=== PATIENT | female | born 1935 | race Caucasian/White ===

== ENCOUNTER → 2017-03-11 | Outpatient (CLI) | payer OTHER ==
[~2017-03-11] MED LIST: COUMADIN5 MG PO; DOLACET 5/5001 EACH PO; LANOXIN250 MC1; LOVENOX60 MG/0.6 SC; OMEPRAZOLE; Z.0.ENALAPRIL MALEA2 PO; Z.0.GABAPENTIN300 MG PO; Z.0.NAPROXEN500 MG PO; ZIAC1 UDTAB GT
--- NOTE | 2017-03-11 11:56 | Diagnostic Imaging Report ---
PROCEDURE:KNEE BILATERAL STANDING AP VIEW COMPARISON:None. INDICATIONS:ARTHRITIS FINDINGS: There are no fractures, dislocations, lytic or blastic lesions. 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 Vascular calcifications. 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 Shirlene Obando M.D. Dictated by: Shirlene Obando M.D. on 03/11/2017 at 12:04 Electronically approved by: Shirlene Obando M.D. on 03/11/2017 at 12:04
== END ==
LOC: RAD 10:15
PROVIDERS: ATTEND Anesthesiology
DX: M17.0 Bilateral primary osteoarthritis of knee (principal)
CPT/HCPCS: 73565

== ENCOUNTER → 2018-01-31 | Outpatient (CLI) | payer OTHER ==
--- NOTE | 2018-01-31 18:23 | Diagnostic Imaging Report ---
FOOT RIGHT COMPLETE - 3 views HISTORY: Pain COMPARISON: None available. FINDINGS: Limited by generalized demineralization. Evidence of first metacarpal head resection with arthroplasty. No evidence of acute displaced fracture or dislocation. Interphalangeal joint space narrowing. Old fracture deformity of fifth metatarsal bone. Soft tissues are unremarkable. IMPRESSION: Limited by generalized demineralization. No definite evidence of acute displaced fracture or dislocation of the right foot. Chronic changes as detailed above. Signed by: Dr. Saran Meeks MD on 01/31/2018 6:20 PM
== END ==
LOC: RAD 16:28
PROVIDERS: ATTEND Family Medicine
DX: M79.671 Pain in right foot (principal)

== ENCOUNTER → 2018-10-10 | Outpatient (CLI) | payer OTHER ==
--- NOTE | 2018-10-10 12:30 | Diagnostic Imaging Report ---
EXAMINATION: SHOULDER LEFT COMPLETE INDICATION: Shoulder pain COMPARISON: None FINDINGS: Acute mildly displaced fracture of the distal third of the left clavicle. 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 No displaced rib fracture. The visualized portions of the left lung are clear. Sternotomy wires in place. IMPRESSION: Acute mildly displaced fracture of distal third of left clavicle. 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 Signed by: Jonathan Batres MD on 10/10/2018 12:26 PM
== END ==
LOC: RAD 11:45
PROVIDERS: ATTEND Family Medicine
DX: M25.512 Pain in left shoulder (principal)

== ENCOUNTER 2018-10-15 08:05 | Emergency (ER) | payer MEDICARE, OTHER ==
[~2018-10-15] VITALS: Ht 157.5 cm; Wt 61.2 kg
--- OUTSIDE RECORDS SUMMARY | 2018-10-15 08:09 | XMS REPORT ---
Author Author [facility] Address Unknown Phone Unavailable Care Team Providers Care Surgical Aide Name Role Phone Olivia GREENE Unavailable Unavailable Juan Pablo CHAPMAN Unavailable Unavailable Problems This patient has no known problems. Allergies, Adverse Reactions, Alerts This patient has no known allergies or adverse reactions. Medications This patient has no known medications. Results Test Description Test Time Test Comments Text Results Atomic Results Result Comments SHOULDER LEFT COMPLETE 2018-10-10 12:21:[address] [address] Patient Name: KATHY PINEDA I MR #: [id number] : 1935 Age/Sex: 83/F Req #: [id number] Adm Physician: Ordered by: STEVEN GREENE MD Report #: [id number] Location: [facility] Room/Bed: Procedure: [id number] DX/SHOULDER LEFT COMPLETE Exam Date: 10/10/18 Exam Time: 1209 REPORT STATUS: Signed EXAMINATION: SHOULDER LEFT COMPLETE INDICA TION: Shoulder pain COMPARISON: None FINDINGS: Acute mildly displaced fracture of the distal third of the left clavicle. 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 No displaced rib fracture. The visualized portions of the left lung are clear. Sternotomy wires in place. IMPRESSION: Acute mildly displaced fracture of distal third of left clavicle. 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 Signed by: Jonathan Draper MD on 10/10/2018 12:26 PM Dictated By: JONATHAN DRAPER MD 25 Transcribed By: SULTANA on 10/10/181225 COPY TO: STEVEN GREENE MD FOOT RIGHT COMPLETE 2018-01-31 18:16:00 [place] [address] Patient Name: KATHY PINEDA I MR #: [id number] : 1935 Age/Sex: 82/F Req #: [id number] Adm Physician: Ordered by: STEVEN GREENE MD Report #: [id number] Location: [facility] Room/Bed: Procedure: [id number] DX/FOOT RIGHT COMPLETE Exam Date: 01/31/18 Exam Time: 1747 REPORT STATUS: Signed FOOT RIGHT COMPLETE - 3 views HISTORY: Pain COM PARISON: None available. FINDINGS: Limited by generalized demineralization. Evidence of first metacarpal head resection with arthroplasty. No evidence of acute displaced fracture or dislocation. Interphalangeal joint space narrowing. Old fracture deformity of fifth metatarsal bone. Soft tissues are unremarkable. IMPRESSION: Limited by generalized demineralization. No definite evidence of acute displaced fracture or dislocation of the right foot. Chronic changes as detailed above. Signed by: Dr. Saran Helm MD on 01/31/2018 6:20 PM Dictated By: SARAN HELM MD 19 Transcribed By: SULTANA on 01/31/181819 COPY TO: STEVEN GREENE MD KNEES STANDING AP VIEW [place] [address] Patient Name: KATHY PINEDA I MR #: [id number] : 1935 Age/Sex: 81/F Req #: [id number] [facility] Physician: Ordered by: MARIANNA CHAPMAN MD Report #: [id number] Location: [facility] Room/Bed: Procedure: [id number] DX/KNEES STANDING AP VIEW Exam Date: 03/11/17 Exam Time: 1030 REPORT STATUS: Signed PROCEDURE: KNEE BILATERAL STANDING AP VIEW COMPARISON: None. INDICATIONS: ARTHRITIS FINDINGS: There are no fractures, dislocations, lytic or blastic lesions. 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 Vascular calcifications. 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 Shirlene Meneses M.D. Dictated by: Shirlene Meneses M.D. on 03/11/2017 at 12:04 Electronically approved by: Shirlene Meneses M.D. on 03/11/2017 at 12:04 Dictated By: VALENTIN MENESES MD, MD 03 Transcribed By: LISA on 03/11/17 120 COPY TO: MARIANNA CHAPMAN MD
[2018-10-15 08:49] LABS: INR 2.17; PROTHROMBIN TIME 24.9 seconds (11.9-14.5)
--- NOTE | 2018-10-15 09:19 | Diagnostic Imaging Report ---
HIP LEFT 2-3 VW (+/- PELVIS) - 3 views HISTORY: Pain COMPARISON: None available. FINDINGS: Bones: No acute displaced fracture. Osseous alignment is within normal limits. Partially seen lumbar spine fusion hardware. Joints: Degenerative changes of the left hip, bilateral SI joints, and lower lumbar spine. Soft tissues: The soft tissues appear unremarkable. IMPRESSION: No evidence of acute displaced fracture or dislocation of the left hip. Signed by: Dr. Saran Meeks MD on 10/15/2018 9:16 AM
--- NOTE | 2018-10-15 09:20 | Diagnostic Imaging Report ---
SHOULDER LEFT COMPLETE - 2 views HISTORY: Pain COMPARISON: None available. FINDINGS: Bones: Fracture of the distal left clavicle with mild inferior displacement. Osseous alignment is within normal limits. Old fracture deformity of the proximal left humerus. Joints: The joint spaces are well-maintained. Soft tissues: The soft tissues appear unremarkable. IMPRESSION: Fracture of the distal left clavicle with mild inferior displacement. No acute fracture or dislocation of the left glenohumeral joint. Signed by: Dr. Saran Meeks MD on 10/15/2018 9:17 AM
== END 2018-10-15 10:36 | disposition home or self-care (01) ==
LOC: ER 08:05
DX: G89.11 Acute pain due to trauma (principal); S42.032A Displaced fracture of lateral end of left clavicle, initial encounter for closed fracture; M25.552 Pain in left hip; W18.30XA Fall on same level, unspecified, initial encounter; Y92.008 Other place in unspecified non-institutional (private) residence as the place of occurrence of the external cause
CPT/HCPCS: 36415; 85610; 99284

== ENCOUNTER 2022-04-14 17:28 | Observation (INO) | payer MEDICARE ==
[~2022-04-14] VITALS: Ht 157.5 cm; Wt 61.2 kg
[2022-04-14 18:13] LABS: BASOPHILS # (AUTO) 0.1 (0.0-0.1); BASOPHILS % 0.9 % (0.0-1.0); EOSINOPHILS # (AUTO) 0.1 (0.0-0.4); EOSINOPHILS % 2.3 % (0.0-6.0); HEMATOCRIT 44.7 % (34.2-44.1); HEMOGLOBIN 13.3 g/dL (12.0-16.0); LYMPHOCYTES # (AUTO) 1.5 (1.0-3.2); LYMPHOCYTES % 26.1 % (18.0-39.1); MEAN CORPUSCULAR HEMOGLOBIN 29.6 pg (28-32); MEAN CORPUSCULAR HGB CONC 29.8 g/dL (31-35); MEAN CORPUSCULAR VOLUME 99.6 fL (81-99); MONOCYTES # (AUTO) 0.5 (0.2-0.8); MONOCYTES % 8.9 % (4.4-11.3); NEUTROPHILS # (AUTO) 3.4 (2.1-6.9); NEUTROPHILS % 61.4 % (38.7-80.0); PLATELET COUNT 278 x10e3/uL (140-360); RED BLOOD COUNT 4.49 x10e6/uL (3.6-5.1)
[2022-04-14] MEDS ORDERED: ONDANSETRON HCL INJ 2MG/ML 2ML 2 MG/ML VIAL IV PRN ×2 (18:15→20:00)
[2022-04-14 18:28] LABS: ANION GAP 13.2 mmol/L (8-16); CALCIUM 9.3 mg/dL (8.4-10.2); CREATININE, SERUM 0.79 mg/dL (0.57-1.11); POTASSIUM 4.2 mmol/L (3.5-5.1)
[2022-04-14 19:37] LABS: CLARITY,URINE HAZY (CLEAR); COLOR,URINE YELLOW (YELLOW); KETONES,URINE NEGATIVE (NEGATIVE); LEUKOCYTE ESTERASE ,URINE NEGATIVE (NEGATIVE); NITRITE,URINE POSITIVE (NEGATIVE); PROTEIN,URINE DIPSTICK NEGATIVE (NEGATIVE); URINE UROBILINOGEN 0.2 mg/dL (0.2 - 1)
[2022-04-14 19:50] LABS: BACTERIA,URINE MANY /HPF; EPITHELIAL CELLS,URINE RARE /LPF
[2022-04-14] MEDS ORDERED: SODIUM CHLORIDE 0.9% 1000ML 1,000 ML IV ONE (20:00)
[2022-04-15] VITALS (8 sets, daily range): BP systolic 112–146; BP diastolic 50–74
[2022-04-15] MEDS: SODIUM CHLORIDE 0.9% 1000ML 1,000 ML IV SCH ×3 (00:15→16:56)
[2022-04-15 05:50] LABS: BASOPHILS % 0.8 % (0.0-1.0); EOSINOPHILS # (AUTO) 0.1 (0.0-0.4); EOSINOPHILS % 1.7 % (0.0-6.0); HEMATOCRIT 42.2 % (34.2-44.1); HEMOGLOBIN 12.7 g/dL (12.0-16.0); LYMPHOCYTES # (AUTO) 1.3 (1.0-3.2); LYMPHOCYTES % 26.4 % (18.0-39.1); MEAN CORPUSCULAR HEMOGLOBIN 29.7 pg (28-32); MEAN CORPUSCULAR HGB CONC 30.1 g/dL (31-35); MEAN CORPUSCULAR VOLUME 98.8 fL (81-99); MONOCYTES # (AUTO) 0.5 (0.2-0.8); MONOCYTES % 9.5 % (4.4-11.3); NEUTROPHILS # (AUTO) 2.9 (2.1-6.9); NEUTROPHILS % 61.6 % (38.7-80.0); PLATELET COUNT 243 x10e3/uL (140-360); RED BLOOD COUNT 4.27 x10e6/uL (3.6-5.1); RED CELL DISTRIBUTION WIDTH 14.7 % (11.7-14.4)
[2022-04-15 06:23] LABS: ANION GAP 12.8 mmol/L (8-16); CALCIUM 8.7 mg/dL (8.4-10.2); CREATININE, SERUM 0.65 mg/dL (0.57-1.11); POTASSIUM 3.8 mmol/L (3.5-5.1)
[2022-04-15] MEDS ORDERED: IOPAMIDOL 370 MG/ML 100 ML INFUS..BTL INJ ONE (09:17)
[2022-04-15] MEDS: CEPHALEXIN 500 MG CAP PO SCH ×3 (10:22→21:52)
[2022-04-15] MEDS: VANCOMYCIN HCL 125 MG CAPSULE PO SCH ×3 (10:22→20:37)
[2022-04-15 10:42] LABS: OCCULT BLOOD STOOL NEGATIVE (NEGATIVE); WBC,FECAL (FECAL LACTOFERRIN) NEGATIVE (NEGATIVE)
[2022-04-15] MEDS ORDERED: CAROSPIR25 MG/5 ML PO (11:40)
[2022-04-15] MEDS ORDERED: SERTRALINE HCL50 MG PO (11:40)
[2022-04-15] MEDS ORDERED: D3-5000125 MCG PO (11:40)
[2022-04-15] MEDS ORDERED: CLOPIDOGREL75 MG PO (11:40)
[2022-04-15] MEDS ORDERED: ROPINIROLE HCL1 MG PO (11:40)
[2022-04-15] MEDS ORDERED: HEMOCYTE PLUS1 EACH PO (11:40)
[2022-04-15] MEDS ORDERED: WARFARIN SODIUM5 MG PO (11:40)
[2022-04-15] MEDS ORDERED: POTASSIUM CHLO10 ME1 PO (11:40)
[2022-04-15] MEDS ORDERED: METOPROLOL TART25 MG PO (11:40)
[2022-04-15] MEDS ORDERED: ARICEPT5 MG PO (11:40)
[2022-04-15] MEDS ORDERED: LIPITOR20 MG PO (11:40)
[2022-04-15] MEDS ORDERED: AMLODIPINE BESYL5 MG PO (11:40)
[2022-04-15] MEDS ORDERED: OSTEO BI-FLEX1 EAC2 PO (11:40)
[2022-04-15] MEDS ORDERED: NEURONTIN100 MG PO (11:40)
[2022-04-15] MEDS ORDERED: SLOW-MAG64 MG PO (11:40)
[2022-04-15] MEDS ORDERED: COMBIGAN EYE DRO5 ML OP (11:44)
[2022-04-15] MEDS ORDERED: LUMIGAN2.5 M1 OP (11:44)
[2022-04-15] MEDS ORDERED: DEXTROSE 50% SYRINGE 50 ML IV PRN (12:45)
[2022-04-15] MEDS: INSULIN LISPRO 100 UNIT/1 ML 3ML VIAL SQ SCH ×2 (16:30→20:39)
[2022-04-15] MEDS: GABAPENTIN 100 MG CAP PO SCH (16:52)
[2022-04-15] MEDS: METOPROLOL TARTRATE 25 MG TAB PO SCH (16:54)
[2022-04-15] MEDS ORDERED: WARFARIN SOD 5 MG TAB PO SCH (17:00)
[2022-04-15] MEDS ORDERED: ENOXAPARIN SOD INJ 40 MG/0.4 ML SYR SC SCH (17:00)
[2022-04-15 18:18] LABS: INR 1.02; PROTHROMBIN TIME 13.6 seconds (11.9-14.5)
[2022-04-15] MEDS ORDERED: ATORVASTATIN 20 MG TAB PO SCH (21:00)
[2022-04-15] MEDS ORDERED: BRIMONIDINE/TIMOLOL (OPTH SOLN 5 ML DRPETTE OP SCH (21:00)
[2022-04-15] MEDS ORDERED: DONEPEZIL HCL 5 MG TAB PO SCH (21:00)
[2022-04-16 00:37] VITALS: BP 146/74
[2022-04-16] MEDS: SODIUM CHLORIDE 0.9% 1000ML 1,000 ML IV SCH (01:49)
[2022-04-16 04:00] VITALS: BP 138/72
[2022-04-16 05:29] LABS: BASOPHILS % 0.6 % (0.0-1.0); EOSINOPHILS # (AUTO) 0.1 (0.0-0.4); EOSINOPHILS % 1.2 % (0.0-6.0); HEMATOCRIT 46.1 % (34.2-44.1); HEMOGLOBIN 13.8 g/dL (12.0-16.0); LYMPHOCYTES # (AUTO) 1.5 (1.0-3.2); LYMPHOCYTES % 27.8 % (18.0-39.1); MEAN CORPUSCULAR HEMOGLOBIN 29.6 pg (28-32); MEAN CORPUSCULAR HGB CONC 29.9 g/dL (31-35); MEAN CORPUSCULAR VOLUME 98.9 fL (81-99); MONOCYTES # (AUTO) 0.5 (0.2-0.8); MONOCYTES % 8.8 % (4.4-11.3); NEUTROPHILS # (AUTO) 3.2 (2.1-6.9); NEUTROPHILS % 61.4 % (38.7-80.0); PLATELET COUNT 278 x10e3/uL (140-360); RED BLOOD COUNT 4.66 x10e6/uL (3.6-5.1); RED CELL DISTRIBUTION WIDTH 14.8 % (11.7-14.4)
[2022-04-16 05:38] LABS: INR 0.99; PROTHROMBIN TIME 13.3 seconds (11.9-14.5)
[2022-04-16 05:47] LABS: ANION GAP 14.8 mmol/L (8-16); CALCIUM 9.2 mg/dL (8.4-10.2); CREATININE, SERUM 0.75 mg/dL (0.57-1.11); POTASSIUM 3.8 mmol/L (3.5-5.1)
[2022-04-16] MEDS: CEPHALEXIN 500 MG CAP PO SCH (05:50)
[2022-04-16] MEDS: INSULIN LISPRO 100 UNIT/1 ML 3ML VIAL SQ SCH (07:30)
[2022-04-16 08:00] VITALS: BP 138/72
[2022-04-16 08:08] VITALS: BP 141/63
[2022-04-16] MEDS ORDERED: MAGNESIUM 64 MG PO SCH (09:00)
[2022-04-16] MEDS ORDERED: BIMATOPROST(OPTH) 2.5 ML BOTTLE OP SCH (09:00)
[2022-04-16] MEDS ORDERED: SERTRALINE HCL 50 MG TAB PO SCH (09:00)
[2022-04-16] MEDS ORDERED: BOSWELLIA SERRA PO SCH (09:00)
[2022-04-16] MEDS ORDERED: AMLODIPINE BESYLATE 5 MG TAB PO SCH (09:00)
[2022-04-16] MEDS ORDERED: WARFARIN SOD 5 MG TAB PO SCH (09:00)
[2022-04-16] MEDS ORDERED: GLUCOSAMINE PO SCH (09:00)
[2022-04-16] MEDS ORDERED: D3 PO SCH (09:00)
[2022-04-16] MEDS ORDERED: IRON-VITAMIN-MINERAL CAPSULE PO SCH (09:00)
[2022-04-16] MEDS ORDERED: POTASSIUM CHLORIDE 10MEQ EA PO SCH (09:00)
[2022-04-16] MEDS ORDERED: ROPINIROLE HCL 1 MG TAB PO SCH (09:00)
[2022-04-16] MEDS ORDERED: CHOLECALCIFEROL 1,000 UNIT TAB PO SCH (09:00)
[2022-04-16] MEDS ORDERED: CLOPIDOGREL BISULFATE 75 MG TAB PO SCH (09:00)
[2022-04-16] MEDS: GABAPENTIN 100 MG CAP PO SCH (09:05)
[2022-04-16] MEDS: VANCOMYCIN HCL 125 MG CAPSULE PO SCH (09:07)
[2022-04-16] MEDS: METOPROLOL TARTRATE 25 MG TAB PO SCH (09:08)
[2022-04-16] MEDS ORDERED: KEFLEX125 MG/5 M PO (10:31)
[2022-04-16] MEDS ORDERED: QUESTRAN PACKET4 GM PO (10:31)
[2022-04-16] MEDS ORDERED: ONDANSETRON ODT4 MG PO ×2 (10:32)
[2022-04-16] MEDS ORDERED: DIGOXIN 0.25 MG TAB PO SCH (11:18)
== END 2022-04-16 10:52 | disposition home or self-care (01) ==
LOC: ER 17:45 → ERHOLD 20:00 → MED/SURG2 23:43
PROVIDERS: ADMIT Internal Medicine; ATTEND Internal Medicine
DX: E86.0 Dehydration (principal); R19.7 Diarrhea, unspecified; N39.0 Urinary tract infection, site not specified; B96.20 Unspecified Escherichia coli [E. coli] as the cause of diseases classified elsewhere; Z20.822 Contact with and (suspected) exposure to COVID-19; I10 Essential (primary) hypertension; Z86.718 Personal history of other venous thrombosis and embolism; Z79.01 Long term (current) use of anticoagulants; E78.5 Hyperlipidemia, unspecified; E03.9 Hypothyroidism, unspecified; Z86.711 Personal history of pulmonary embolism
CPT/HCPCS: 0223U; 36415 ×3; 74177; 80048 ×2; 80053; 81001; 82270; 82948 ×2; 83630; 84484; 85025 ×3; 85610 ×2; 87045; 87086; 87177; 87186; 87324; 87328; 87449; 93005; 96361; 97116; 97162; 99284; G0378 ×3; J1650; J7030 ×3; Q9967

== ENCOUNTER 2024-01-07 15:40 | Emergency (ER) | payer MEDICARE ==
[~2024-01-07] VITALS: Ht 309.9 cm; Wt 61.2 kg
[~2024-01-07 15:40] MED LIST changes: +AMLODIPINE BESYL5 MG PO; +ARICEPT5 MG PO; +CAROSPIR25 MG/5 ML PO; +CLOPIDOGREL75 MG PO; +COMBIGAN EYE DRO5 ML OP; +D3-5000125 MCG PO; +FEROSUL325 MG PO; +HEMOCYTE PLUS1 EACH PO; +IMODIUM A-D2 M2 PO; +KEFLEX125 MG/5 M PO; +LIPITOR20 MG PO; +LUMIGAN2.5 M1 OP; +METOPROLOL TART25 MG PO; +NEURONTIN100 MG PO; +ONDANSETRON ODT4 MG PO; +OSTEO BI-FLEX1 EAC2 PO; +POTASSIUM CHLO10 ME1 PO; +QUESTRAN PACKET4 GM PO; +ROPINIROLE HCL1 MG PO; +SERTRALINE HCL50 MG PO; +SLOW-MAG64 MG PO; +TYLENOL325 MG PO; +VITAMIN B COMP1 EACH PO; +VITAMIN D310 MCG PO; +WARFARIN SODIUM5 MG PO
[2024-01-07 15:53] VITALS: TEMP 98.9
[2024-01-07 18:03] VITALS: PULSE 84; RESP 17; O2SAT 100
== END 2024-01-07 21:06 ==
LOC: ER 15:56
DX: S00.83XA Contusion of other part of head, initial encounter (principal); W18.30XA Fall on same level, unspecified, initial encounter; Y92.89 Other specified places as the place of occurrence of the external cause; I10 Essential (primary) hypertension; E78.5 Hyperlipidemia, unspecified; E03.9 Hypothyroidism, unspecified; K21.9 Gastro-esophageal reflux disease without esophagitis; F41.9 Anxiety disorder, unspecified; Z86.718 Personal history of other venous thrombosis and embolism
CPT/HCPCS: 70450; 72125; 99283